=== PATIENT | female | born 1950 ===

== ENCOUNTER 2019-05-12 02:01 | Outpatient (CLI) | payer MEDICARE | END 2019-05-12 23:59 | disposition home or self-care (01) | LOC: DIABETIC 02:01 | PROVIDERS: ATTEND Student in an Organized Health Care Education/Training Program | DX: E11.65 Type 2 diabetes mellitus with hyperglycemia (principal); Z79.84 Long term (current) use of oral hypoglycemic drugs; Z79.899 Other long term (current) drug therapy; Z88.0 Allergy status to penicillin; Z91.040 Latex allergy status; Z88.8 Allergy status to other drugs, medicaments and biological substances | CPT/HCPCS: G0108 ==

== ENCOUNTER 2019-08-26 01:27 | Outpatient (CLI) | payer MEDICARE | END 2019-08-26 23:59 | disposition home or self-care (01) | LOC: DIABETIC 01:27 | PROVIDERS: ATTEND Student in an Organized Health Care Education/Training Program | DX: E11.69 Type 2 diabetes mellitus with other specified complication (principal); Z79.84 Long term (current) use of oral hypoglycemic drugs | CPT/HCPCS: G0108 ==

== ENCOUNTER 2019-11-22 02:25 | Outpatient (CLI) | payer MEDICARE | END 2019-11-22 23:59 | disposition home or self-care (01) | LOC: DIABETIC 02:25 | PROVIDERS: ATTEND Student in an Organized Health Care Education/Training Program | DX: E11.65 Type 2 diabetes mellitus with hyperglycemia (principal); Z79.84 Long term (current) use of oral hypoglycemic drugs | CPT/HCPCS: G0108 ==

== ENCOUNTER 2025-09-01 14:21 | Outpatient (CLI) | payer MEDICARE ==
--- NOTE | 2025-09-01 19:00 | RADIOLOGY REPORT ---
EXAM: MR MRI UPPER EXTREMITY RIGHT INDICATION: PAIN IN RIGHT SHOULDER TECHNIQUE: Multiplanar, multisequence MR images of the right shoulder were obtained in the absence of gadolinium contrast material. COMPARISON: None FINDINGS: [CORACOACROMIAL ARCH]: Mild degenerative change of the acromioclavicular joint. Intact coracoclavicular ligaments. Intact coracoacromial ligaments. No subacromial/subdeltoid bursal fluid. [ROTATOR CUFF]: [id number] tendinosis of the superior rotator cuff. Trace possible bursal sided fraying of the superior rotator cuff. Indeterminate areas of lower T2 signal along the distal rotator cuff upon the greater tuberosity with significant underlying osteitis of the anterior facet of the greater tuberosity. Intermediate to high signal intensity which may reflect interstitial tearing of the distal subscapularis tendon [BICEPS TENDON]: Fluid along the long head of the biceps tendon sheath which may reflect tenosynovitis versus sequelae of adhesive capsulitis [LABRUM]: Intact. [CARTILAGE]: No measurable cartilage defect. [GLENOHUMERAL JOINT]: No joint effusion. No intra-articular body. [BONES]: No acute fracture, osseous contusion, or aggressive focal osseous lesion. osteitis of the anterior facet of the greater tuberosity. [MUSCLES]: Normal muscle bulk of the rotator cuff muscles. [NEUROVASCULAR/LYMPH NODES]: Normal. [OTHER]: None. IMPRESSION: 1. [id number] tendinosis of the superior rotator cuff. Trace possible bursal sided fraying of the superior rotator cuff. 2. Indeterminate areas of lower T2 signal along the distal rotator cuff upon the greater tuberosity with significant underlying osteitis of the anterior facet of the greater tuberosity. Consideration for sequelae of Calcific tendonitis. 3. Intermediate to high signal intensity which may reflect interstitial tearing of the distal subscapularis tendon 4. Fluid along the long head of the biceps tendon sheath which may reflect tenosynovitis versus sequelae of adhesive capsulitis
== END 2025-09-01 23:59 | disposition home or self-care (01) ==
LOC: MRI02 14:21
PROVIDERS: ATTEND Family Medicine Sports Medicine
DX: M75.111 Incomplete rotator cuff tear or rupture of right shoulder, not specified as traumatic (principal); M19.011 Primary osteoarthritis, right shoulder; M75.81 Other shoulder lesions, right shoulder; M77.11 Lateral epicondylitis, right elbow; M77.9 Enthesopathy, unspecified; M25.511 Pain in right shoulder; L40.9 Psoriasis, unspecified
CPT/HCPCS: 73221